=== PATIENT | male | born 1955 | race Caucasian/White ===

== ENCOUNTER → 2017-10-05 | Outpatient (CLI) | payer BC ==
[~2017-10-05] VITALS: Ht 167.6 cm; Wt 114.8 kg
[~2017-10-05] MED LIST: ASPIR 8181 M1 PO; ATORVASTATIN CA40 MG PO; BYSTOLIC10 MG PO; COZAAR 50 MG TA50 M2 PO; HYDROCHLOROTHIA25 M2 PO
--- NOTE | ~2017-10-05 | CATHLAB ---
[facility] [address] [email or web address] [address] INVASIVE PROCEDURE REPORT Name: KULWINDER DUNN [facility]: [facility] [id number] Admission: 10/05/17 Attend Phys: Bruce Jensen, Discharge: Date of : 53 Date of Service: 10/05/17 1312 Report #: [id number] THIS REPORT FOR: //name// APPROVED REPORT Patient Details Patient Status: Out-Patient Room #: The patient is a 61 year-old male Event Personnel Bruce Jensen Engineering Associate, Heather Gallegos, Bushra Wall[place], Ariel RN oral pathologist Performed Art Access - R femoral artery* , Maikol Access - R femoral vein [id number] Initial Mod Sed Same Phys/QHP Gr5y [id number] 25228 Mod Sed Same Phys/QHP Ea [id number] Right and Left Heart Cath w/or w/o Coronarie [id number] RLHC Hemostasis w/ Mynx Hemostasis with Manual pressure Procedure Narrative The patient was brought electively to the Cardiac Catheterization Laboratory and was prepped and draped in a sterile manner. The Right Groin^ was infiltrated with 1% Lidocaine subcutaneous anesthesia. A Right Heart Catheterization was performed with a 7 Fr. Hart-Kelechi catheter and pressure were recorded. Cardiac outputs were obtained by the Thermal Dilution method. A PINNACLE 6FR Sheath #[id number] sheath was inserted into the RFA^. Coronary angiography was performed using coronary diagnostic catheters. The right coronary system was accessed and visualized with a JR4 catheter. The left coronary system was accessed and visualized with a JL4 catheter. The left ventricle was accessed and visualized with a PIGTAIL catheter. Left ventriculogram was performed in 30 degree projection. An aortogram of the abdominal aorta was performed. Pre-demployment femoral angiogram was performed . Closure device was deployed with a 6 Fr MYNXGRIP 6/7F #[id number]. Hemostasis was obtained with manual pressure following sheath removal without any complications. The patient tolerated the procedure well and there were no complications associated with the procedure. There was no hematoma. Intraoperative Conscious Sedation Sedation start time: 08:44 Case end Time: 09:16 Fentanyl 25 mcg Versed 1.5 mg .[address] [address] INVASIVE PROCEDURE REPORT Name: DUNNKULWINDER NIKHIL Room #: [facility] [id number] Admission: 10/05/17 Attend Phys: Bruce Jensen, Discharge: Date of : 53 Date of Service: 10/05/17 1312 Report #: [id number] Fluoro Time: 4.18 minutes Dose: DAP 7207.00 cGycm2 669 mGy Contrast Type and Amount: Visipaque 105 ml Hemodynamics The right atrial mean pressure is 14 mmHg. The right ventricular pressure is 32/12 mmHg. The pulmonary artery pressure is 29/16 mmHg with a mean of 21 mmHg. The aortic pressure is 135/68 mmHg with a mean of 91 mmHg. The left ventricular pressure is 138/-4 mmHg with a mean of mmHg. The left ventricular end diastolic pressure is 21 mmHg. The cardiac output using thermo method is 5.50 L/min. The cardiac index using thermo method is 2.48 L/min/m2. Conclusion #1 normal left ventricular size with mild global hypokinesis EF 45-50% (this shows improvement over echo Doppler findings and ) #2Normal abdominal aorta without evidence of aneurysm single bilateral renal arteries widely patent #3 left main large giving rise to the dominant circumflex and LAD no significant disease in left main #4 LAD moderately disease proximal and mid vessel 30-40% mild calcification extends around the apex. No occlusive disease #5 large dominant circumflex system with minimal irregularity. #6 small nondominant right with mild disease #7 successful right heart catheterization with normal pulmonary pressures as described above cardiac output 5.5 Recommendations and plan continue aggressive risk factor modification continue moderate fluid and sodium restriction as well as diuretic restart medications. Beta sonia jama diuretic LV function shows improvement. Symptomatically patient is improved. Continue slow gradual weight loss follow-up will be scheduled 3 months No lifting for 48 hours no line tub [employer] or Nath for a week. <ELECTRONICALLY SIGNED> By: Bruce Jensen MD, FACC 10/05/17 131 11 131 Bruce Jensen MD, FACC /INF
[2017-10-05 07:03] VITALS: BP 152/84
== END | disposition home or self-care (01) ==
LOC: CATH 06:34
DX: I25.10 Atherosclerotic heart disease of native coronary artery without angina pectoris (principal); I11.9 Hypertensive heart disease without heart failure; E78.5 Hyperlipidemia, unspecified; E66.09 Other obesity due to excess calories; Z98.890 Other specified postprocedural states; Z79.82 Long term (current) use of aspirin; Z79.899 Other long term (current) drug therapy

== ENCOUNTER → 2021-04-19 | Outpatient (CLI) | payer BC | LOC: SJCVCIMAG 10:06 | PROVIDERS: ATTEND Internal Medicine Cardiovascular Disease | DX: I25.10 Atherosclerotic heart disease of native coronary artery without angina pectoris (principal); I42.9 Cardiomyopathy, unspecified ==

== ENCOUNTER → 2021-11-15 | Outpatient (CLI) | payer OTHER | LOC: SJCVC 11:44 | PROVIDERS: ATTEND Internal Medicine Cardiovascular Disease | DX: I48.0 Paroxysmal atrial fibrillation (principal); E78.00 Pure hypercholesterolemia, unspecified; I42.9 Cardiomyopathy, unspecified; I25.10 Atherosclerotic heart disease of native coronary artery without angina pectoris; I12.9 Hypertensive chronic kidney disease with stage 1 through stage 4 chronic kidney disease, or unspecified chronic kidney disease; N18.9 Chronic kidney disease, unspecified; G47.33 Obstructive sleep apnea (adult) (pediatric); Z82.49 Family history of ischemic heart disease and other diseases of the circulatory system; Z88.8 Allergy status to other drugs, medicaments and biological substances; Z79.899 Other long term (current) drug therapy ==